=== PATIENT | female | born 1990 | race Caucasian/White ===

== ENCOUNTER → 2024-09-15 10:29 | Outpatient (REF) | payer OTHER, SELFPAY | LOC: OHS 10:29 | PROVIDERS: ATTENDING PHYSICIAN Nurse Practitioner Family | DX: Z23 Encounter for immunization (principal) | CPT/HCPCS: 36415; 86480; 86735; 86762; 86765; 86787 ==

== ENCOUNTER → 2025-01-16 14:39 | Outpatient (REF) | payer BC, SELFPAY | LOC: RAD 14:39 | PROVIDERS: ATTENDING PHYSICIAN Advanced Practice Midwife; FAMILY PHYSICIAN Family Medicine | DX: N92.1 Excessive and frequent menstruation with irregular cycle (principal) | CPT/HCPCS: 76856 ==

== ENCOUNTER → 2025-01-27 07:19 | Outpatient (REF) | payer BC, SELFPAY ==
[2025-01-27 12:10] LABS: TSH 0.67 uIU/ml (0.47-4.68)
== END ==
LOC: REG 07:19
PROVIDERS: ATTENDING PHYSICIAN Advanced Practice Midwife; FAMILY PHYSICIAN Family Medicine
DX: N91.0 Primary amenorrhea (principal)
CPT/HCPCS: 36415; 84439; 84443

== ENCOUNTER → 2025-02-07 07:14 | Outpatient (REF) | payer BC, SELFPAY ==
[2025-02-07 08:26] LABS: FSH 41.8 mIU/ml
== END ==
LOC: REG 07:14
PROVIDERS: ATTENDING PHYSICIAN Advanced Practice Midwife; FAMILY PHYSICIAN Family Medicine
DX: N91.0 Primary amenorrhea (principal)
CPT/HCPCS: 36415; 82670; 83001; 83002; 84144